=== PATIENT | female | born 1970 | race Caucasian/White ===

== ENCOUNTER 2016-04-05 21:20 | Emergency (ER) | payer BC ==
[2016-04-05 21:36] VITALS: RESP 16
[2016-04-05 21:58] LABS: Appearance,Urine Clear (Clear); Bilirubin,Urine Negative (Negative); Glucose,Urine (UA) Negative (Negative); Ketones,Urine Negative (Negative); Leukocyte Esterase,Urine Negative (Negative); Nitrite,Urine Negative (Negative); Protein,Urine Negative (Negative); Specific Gravity,Urine 1.009 (1.001-1.035); UA Billing (MACRO vs. MICRO) CHEM; Urobilinogen,Urine <2.0 mg/dL (<2.0)
[2016-04-05] MEDS ORDERED: KETOROLAC 60 MG/2 ML VIAL IM STA (22:46)
[2016-04-05 23:03] VITALS: PULSE 72; TEMP 98.3
[2016-04-05 23:04] VITALS: BP 114/69
--- NOTE | 2016-04-05 23:21 | ED ---
Female Urogenital HPI - General Chief complaint: Vaginal Bleeding Stated complaint: Poss Miscarriage Time Seen by Provider: 04/05/16 21:38 Source: patient, RN notes reviewed Mode of arrival: ambulatory Limitations: no limitations - History of Present Illness Initial comments: Patient is a 46-year-old female presents to the emergency room for evaluation of vaginal bleeding. Patient states her last menstrual period was about a year ago. Patient states she began vaginal bleeding yesterday. Patient states that she's been passing large clots. Patient states she is worried that she's having a miscarriage. Patient states that he mild abdominal cramping. Patient states she also has headache. Patient denies dizziness, shortness of breath, chest pain, nausea, vomiting. Patient states she took a home test earlier today and it was negative. Patient states the clotting worried her so she thought she should be evaluated. Patient denies going through any pads or tampons. Patient is states she noticed the clots every time she wipes herself after using the bathroom. Last Menstrual Period: 03/13/15 - Related Data Home Medications Medication Instructions Recorded Confirmed Ibuprofen [Motrin] 400 mg PO ONCE PRN 07/05/15 04/05/16 Allergies Allergy/AdvReac Type Severity Reaction Status Date / Time No Known Allergies Allergy Verified 04/05/16 21:35 Review of Systems ROS Statement: Those systems with pertinent positive or pertinent negative responses have been documented in the HPI. ROS Other: All systems not noted in ROS Statement are negative. Past Medical History Past Medical History: No Reported History Additional Past Medical History / Comment(s): hemorrhoids and hernia History of Any Multi-Drug Resistant Organisms: None Reported Past Surgical History: Breast Surgery Additional Past Surgical History / Comment(s): bilateral breast implants, laser eye surgery with implants. hemorrhoidectomy Past Anesthesia/Blood Transfusion Reactions: No Reported Reaction Past Psychological History: No Psychological Hx Reported Smoking Status: Never smoker Past Alcohol Use History: Occasional Past Drug Use History: None Reported - Past Family History Mother Family Medical History: No Reported History General Exam - General Exam Comments Initial Comments: Sitting in exam room in no acute distress. Limitations: no limitations General appearance: alert, in no apparent distress Head exam: Present: atraumatic, normocephalic, normal inspection Eye exam: Present: normal appearance ENT exam: Present: normal exam Neck exam: Present: normal inspection Respiratory exam: Present: normal lung sounds bilaterally. Absent: respiratory distress Cardiovascular Exam: Present: regular rate, normal rhythm, normal heart sounds GI/Abdominal exam: Present: soft, normal bowel sounds. Absent: distended, tenderness, guarding, rebound, rigid External exam: Present: normal external exam Speculum exam: Present: vaginal bleeding By manual exam: Present: normal by manual exam Extremities exam: Present: normal inspection Back exam: Present: normal inspection Neurological exam: Present: alert, oriented X3, CN II-XII intact, normal gait Psychiatric exam: Present: normal affect, normal mood Skin exam: Present: warm, dry, intact, normal color. Absent: rash Course Vital Signs 04/05/16 04/05/16 21:28 23:02 Temperature 97.5 F L 98.3 F Pulse Rate 91 72 Respiratory 16 16 Rate Blood Pressure 149/72 114/69 O2 Sat by Pulse 97 97 Oximetry Medical Decision Making - Medical Decision Making Patient is a 46-year-old female presents emergency room for violation of vaginal bleeding. No significant bleeding or clotting noticed on pelvic exam. Urine test negative. Advised patient to follow-up with [facility]. Patient states she understands everything that was discussed with her. Return parameters discussed. Case discussed Dr. Issa. - Lab Data Lab Results 04/05/16 04/05/16 Range/Units 21:50 21:50 Urine Color Light Yellow Urine Appearance Clear (Clear) Urine pH 6.0 (5.0-8.0) Ur Specific [place] 1.009 (1.001-1.035) Urine Protein Negative (Negative) Urine Glucose (UA) Negative (Negative) Urine Ketones Negative (Negative) Urine Blood Negative (Negative) Urine Nitrate Negative (Negative) Urine Bilirubin Negative (Negative) Urine Urobilinogen <2.0 (<2.0) mg/dL Ur Leukocyte Esterase Negative (Negative) Urine HCG, Qual Not Detected (Not Detectd) Disposition Clinical Impression: Menorrhagia Disposition: HOME SELF-CARE Instructions: Menorrhagia (ED) Additional Instructions: Please follow-up with [facility]. Take Tylenol or Motrin as needed for discomfort. If any new symptom arises or symptoms worsen, return to ER as soon as possible. Referrals: Zelalem Norris MD [Primary Care Provider] - 1-2 days Time of Disposition: 23:20
== END 2016-04-05 23:25 | disposition home or self-care (01) ==
LOC: EC 21:20
DX: N92.0 Excessive and frequent menstruation with regular cycle (principal); R51 Headache
CPT/HCPCS: 99284; 96372; 81003; 81025; J1885

== ENCOUNTER → 2016-08-14 | Outpatient (CLI) | payer BC ==
[2016-08-14 10:10] LABS: Basophils % (A) 1 %; CH 32.4; CHCM 34.4; Eosinophils # (A) 0.1 k/uL (0-0.7); Eosinophils % (A) 2 %; HCT 38.9 % (34.0-46.0); HDW 2.46; HGB 14.1 gm/dL (11.4-16.0); Luc % (Auto) 2; Lymphocytes # (A) 1.8 k/uL (1.0-4.8); Lymphocytes % (A) 34 %; MCH 34.2 pg (25.0-35.0); MCHC 36.2 g/dL (31.0-37.0); MCV 94.7 fL (80.0-100.0); Mean Platelet Volume 6.9; Monocytes # (A) 0.3 k/uL (0-1.0); Monocytes % (A) 5 %; Neutrophils # (A) 3.1 k/uL (1.3-7.7); Neutrophils % (A) 57 %; RBC 4.11 m/uL (3.80-5.40); WBC 5.4 k/uL (3.8-10.6)
[2016-08-14 10:26] LABS: ALT 69 U/L (9-52); AST 35 U/L (14-36); Alkaline Phosphatase 81 U/L (38-126); Anion Gap 9 mmol/L; Blood Urea Nitrogen 20 mg/dL (7-17); Calcium 9.3 mg/dL (8.4-10.2); Carbon Dioxide 27 mmol/L (22-30); Chloride 106 mmol/L (98-107); Cholesterol 238 mg/dL (<200); Glucose 96 mg/dL (74-99); HDL Cholesterol 70 mg/dL (40-60); Non-African American GFR(MDRD) >60 (>60 ml/min/1.73 sqM); Potassium 4.1 mmol/L (3.5-5.1); Sodium 142 mmol/L (137-145); Total Bilirubin 0.6 mg/dL (0.2-1.3); Triglycerides 202 mg/dL (<150)
== END | disposition home or self-care (01) ==
LOC: LABWHC1 09:34
PROVIDERS: ATTEND Family Medicine
DX: Z00.01 Encounter for general adult medical examination with abnormal findings (principal)
CPT/HCPCS: 36415; 80053; 80061; 84443; 85025

== ENCOUNTER → 2016-10-24 | Outpatient (CLI) | payer BC ==
--- NOTE | 2016-10-24 18:41 | US ---
EXAMINATION TYPE: US transvaginal DATE OF EXAM: 10/24/2016 COMPARISON: NONE CLINICAL HISTORY: R87.619 Atypical glandular cells. Abnormal periods TECHNIQUE: Transvaginal (TV) Date of LMP: 04/01/2016 EXAM MEASUREMENTS: Uterus: 6.6 x 2.8 x 3.5 cm Endometrial Stripe: 0.42 cm Right Ovary: 2.0 x 1.5 1.3 cm 1. Uterus: Anteverted wnl 2. Endometrium: wnl 3. Right Ovary: wnl 4. Left Ovary: Obscured by overlying bowel gas 5. Bilateral Adnexa: wnl 6. Posterior cul-de-sac: wnl IMPRESSION: Left ovary is not seen. No adnexal mass or free fluid. Normal uterus and endometrium.
== END ==
LOC: RADUSMAIN 17:55
PROVIDERS: ATTEND Obstetrics & Gynecology
DX: R87.619 Unspecified abnormal cytological findings in specimens from cervix uteri (principal)
CPT/HCPCS: 76830

== ENCOUNTER 2016-11-21 09:25 | Day surgery (SDC) | payer BC ==
--- NOTE | 2016-11-20 20:20 | P.HPOB ---
History of Present Illness H&P Date: 11/20/16 Chief Complaint: Endometrial hyperplasia This is a 46-year-old female 0 who presents for dilation and curettage with hysteroscopy due to endometrial hyperplasia noted on endometrial biopsy. She had a Pap smear initially on 10/16/2016 that showed atypical glandular cells , favor neoplastic and atypical endometrial cells. HPV was unable to be performed due to scant specimen. She underwent a colposcopy and endometrial biopsy on 10/29/2016. Endocervical curetting showed no endocervical tissue present for evaluation. Cervical biopsy at 1 o'clock position showed koilocytotic like atypia could not exclude HPV effect. Endometrial biopsy showed rare minute fragments of endometrial tissue showing features of endometrial hyperplasia, and pathologist highly recommended endometrial curettings for definitive diagnosis and to rule out endometrial carcinoma. The patient currently is having irregular menses anywhere from 1-5 months apart. Menses usually last 5 days when she does have them. Pelvic ultrasound showed uterus measuring 6.6 x 2.8 x 3.5 cm with endometrial stripe thickness of 0.42 cm. Right ovary appeared normal size and left ovary was not visualized. Obstetrical history: . Gynecologic history: No history of sexual transmitted diseases. She is currently using condoms for control. She has had the same boyfriend since 2012. Social history: She is engaged. She currently works as a waiter/waitress second class. Review of Systems Constitutional: Reports night sweats, Reports weight gain Ears, nose, mouth and throat: Denies headache, Denies sore throat Cardiovascular: Denies chest pain, Denies shortness of breath Respiratory: Denies cough Gastrointestinal: Denies abdominal pain, Denies diarrhea, Denies nausea, Denies vomiting Genitourinary: Reports hot flashes, Denies dysuria, Denies hematuria Menstruation: Reports menses variable Musculoskeletal: right: knee pain Neurological: Denies numbness, Denies weakness Psychiatric: Denies anxiety, Denies depression Past Medical History Past Medical History: Asthma, Osteoarthritis (OA) Additional Past Medical History / Comment(s): having knee replacement in December History of Any Multi-Drug Resistant Organisms: None Reported Past Surgical History: Breast Surgery, Hernia Repair (Umbilical) Additional Past Surgical History / Comment(s): bilateral breast implants, laser eye surgery with implants. hemorrhoidectomy, hernia repair w/mesh Past Anesthesia/Blood Transfusion Reactions: No Reported Reaction Past Psychological History: No Psychological Hx Reported Smoking Status: Never smoker Past Alcohol Use History: Occasional Past Drug Use History: None Reported - Past Family History Mother Family Medical History: No Reported History Medications and Allergies Home Medications Medication Instructions Recorded Confirmed Type Ibuprofen [Motrin] 200 - 400 mg PO Q6H PRN 07/05/15 11/18/16 History Acetaminophen [Tylenol Arthritis] 650 mg PO Q6H PRN 11/18/16 11/18/16 History Citalopram Hydrobromide [CeleXA] 10 mg PO DAILY 11/18/16 11/18/16 History Allergies Allergy/AdvReac Type Severity Reaction Status Date / Time No Known Allergies Allergy Verified 11/18/16 14:13 Exam Osteopathic Statement: *. No significant issues noted on an osteopathic structural exam other than those noted in the History and Physical/Consult. HEENT: Within normal limits Heart: Regular rate and rhythm Lungs: Clear to auscultation bilaterally Abdomen: Soft, nontender Pelvic exam: Uterus is small, anteverted, with no adnexal masses or tenderness noted. Extremities: Negative Homans Assessment and Plan (1) Endometrial hyperplasia Status: Acute Plan: Proceed with dilation and curettage with hysteroscopy. I have discussed the risks, benefits, and alternative therapies for the above- mentioned procedure and for both sedation/anesthesia as well as necessary blood products administration, if indicated, as they pertain to this patient. The patient has indicated her understanding and acceptance of the risks and procedures discussed.
[~2016-11-21 09:25] MED LIST: DEXAMETHASONE SOD PHOSPHATE 10 MG/ML 1 ML VIAL IV ONE; ONDANSETRON 4 MG/2 ML VIAL IVP ONE; Pre Op ABX Message 1 EACH MISC MISCELLANE ONE
[2016-11-21] MEDS: LACTATED RINGERS 1,000 ML IV SCH ×2 (10:13→10:44)
[2016-11-21] MEDS ORDERED: LIDOCAINE 1% 20 ML VIAL (10MG/ML) FOR IV START INTRADERMA ONE (10:13)
[2016-11-21] MEDS ORDERED: LIDOCAINE 1% INJ 10MG/ML (20 ML MDV) ONE (10:47)
[2016-11-21] MEDS ORDERED: KETOROLAC 30 MG/ML 1 ML VIAL ONE (10:47)
[2016-11-21] MEDS ORDERED: MIDAZOLAM 2 MG/2 ML VIAL ONE (10:47)
[2016-11-21] MEDS ORDERED: PROPOFOL 10 MG/ML 20 ML VIAL IV ONE (10:47)
[2016-11-21] MEDS ORDERED: fentaNYL (PF) 50 MCG/ML 2 ML AMP ONE (10:47)
--- NOTE | 2016-11-21 11:20 | P.OP ---
Date of Procedure: 11/21/16 Preoperative Diagnosis: Hysteroscopy with dilation and curettage Postoperative Diagnosis: Same Procedure(s) Performed: Dilation and curettage with hysteroscopy Anesthesia: other (mask general) Surgeon: Sharyn Stauffer Estimated Blood Loss (ml): 10 Pathology: other (1. Endocervical curettings; 2. Endometrial curettings) Condition: stable Disposition: same day Indications for Procedure: This is a 46-year-old female 0 who presents for dilation and curettage with hysteroscopy due to endometrial hyperplasia noted on endometrial biopsy. She had a Pap smear initially on 10/16/2016 that showed atypical glandular cells , favor neoplastic and atypical endometrial cells. HPV was unable to be performed due to scant specimen. She underwent a colposcopy and endometrial biopsy on 10/29/2016. Endocervical curetting showed no endocervical tissue present for evaluation. Cervical biopsy at 1 o'clock position showed koilocytotic like atypia could not exclude HPV effect. Endometrial biopsy showed rare minute fragments of endometrial tissue showing features of endometrial hyperplasia, and pathologist highly recommended endometrial curettings for definitive diagnosis and to rule out endometrial carcinoma. The patient currently is having irregular menses anywhere from 1-5 months apart. Menses usually last 5 days when she does have them. Pelvic ultrasound showed uterus measuring 6.6 x 2.8 x 3.5 cm with endometrial stripe thickness of 0.42 cm. Right ovary appeared normal size and left ovary was not visualized. Operative Findings: Uterus is anteverted, sounded to 6 cm. There was what appeared to be a very small endocervical polyp noted. A fairly atrophic endometrial pattern is visualized with minimal buildup of tissue. Both tubal ostia are visualized. Description of Procedure: The patient was taken to the operating room where she is placed in the dorsal lithotomy position. She is prepped and draped in the normal sterile fashion. Bladder is drained with a catheter and then removed. Examination is performed under anesthesia. Uterus is found to be anteverted with no adnexal masses palpated. Next a weighted speculum was placed in the patient's vagina and a right angle retractor was used to visualize the cervix the anterior lip of the cervix is grasped with a single-tooth tenaculum. There is noted to be what appears to be a very small endocervical polyp noted. This is removed with a hemostat and then the endocervix is curetted with a Kevorkian curet and the tissue was sent to pathology labeled endocervical curettings. Next the uterus is sounded to 6 cm. The cervix is gently dilated with Turner dilators until a hysteroscope could be passed. Hysteroscopy is performed using normal saline. The above-noted findings are made and pictures are taken. Next the camera was withdrawn and the cervix was dilated slightly further. A polyp forcep was introduced and minimal tissue was obtained. Next a medium-size sharp curet was introduced and sharp curettage was performed until a gritty texture was noted with minimal further tissue obtained. Next the single-tooth tenaculum was removed and pressure was applied with a ring forcep. A ring forcep was removed no active bleeding was noted. All sponge and needle counts are correct. All instruments are removed from the vagina. The patient is then taken to recovery room in stable condition.
[2016-11-21 11:27] VITALS: TEMP 97.8
[2016-11-21 11:32] VITALS: RESP 16
[2016-11-21] MEDS: HYDROmorphone 0.5 MG/0.5 ML SYRINGE IVP PRN ×2 (11:45→11:59)
[2016-11-21] MEDS ORDERED: LACTATED RINGERS 1,000 ML IV ONE (12:39)
[2016-11-21 13:25] VITALS: BP 118/70; PULSE 78
== END 2016-11-21 13:57 | disposition home or self-care (01) ==
LOC: OR 09:25
PROVIDERS: ATTEND Obstetrics & Gynecology
DX: N85.02 Endometrial intraepithelial neoplasia [EIN] (principal); N84.1 Polyp of cervix uteri; K21.9 Gastro-esophageal reflux disease without esophagitis; J45.909 Unspecified asthma, uncomplicated; M19.90 Unspecified osteoarthritis, unspecified site; Z79.899 Other long term (current) drug therapy
CPT/HCPCS: 58558; 81025; 88305; J2250; J1100; J2405; J2001; J3010; J1885; J2704; J1170

== ENCOUNTER 2017-10-25 13:50 | Emergency (ER) | payer BC ==
[2017-10-25 14:05] VITALS: PULSE 80; RESP 18
--- NOTE | 2017-10-25 14:15 | ED ---
Upper Extremity HPI - General Chief Complaint: Extremity Injury, Upper Stated Complaint: Fall Time Seen by Provider: 10/25/17 14:05 Source: patient Mode of arrival: ambulatory Limitations: no limitations - History of Present Illness Initial Comments: This a pleasant 47-year-old female presents emergency department after tripping over her cat and falling at home. Patient denies any other injuries. Patient denies any distal paresthesias. Patient denies head or neck injury. No preceding symptomology. No chest pain or shortness of breath. No abdominal pain. No vision or hearing changes. Patient states pain is sharp in nature located mostly in the right elbow and is exacerbated by movement. Patient also complaining of some pain in the left hand overlying the left fifth metacarpal phalangeal joint area. Pain is exacerbated by movement and alleviated by rest. MD Complaint: Injury to:: right, elbow Onset/Timin -: hour(s) Other Extremity Injury: Fingers: Left, Hand: Left (Left hand overlying the area of the fifth metacarpophalangeal joint and proximal left fifth finger phalanx.) Other Injuries: none Handedness: right Place: home Improves With: rest Worsens With: movement of extremity Context: fall - Related Data Home Medications Medication Instructions Recorded Confirmed Cranberry Fruit Concentrate [Azo 250 mg PO DAILY 10/25/17 10/25/17 Cranberry] Previous Rx's Medication Instructions Recorded HYDROcodone/APAP 5-325MG [[place] 1 each PO Q4HR PRN #15 tab 10/25/17 5-325] Allergies Allergy/AdvReac Type Severity Reaction Status Date / Time No Known Allergies Allergy Verified 10/25/17 14:12 Review of Systems ROS Statement: Those systems with pertinent positive or pertinent negative responses have been documented in the HPI. ROS Other: All systems not noted in ROS Statement are negative. Past Medical History Past Medical History: Asthma, Osteoarthritis (OA) Additional Past Medical History / Comment(s): having knee replacement in December History of Any Multi-Drug Resistant Organisms: None Reported Past Surgical History: Breast Surgery, Hernia Repair, Joint Replacement Additional Past Surgical History / Comment(s): bilateral breast implants, laser eye surgery with implants. hemorrhoidectomy, hernia repair w/mesh, right knee replacement Past Anesthesia/Blood Transfusion Reactions: No Reported Reaction Past Psychological History: No Psychological Hx Reported Smoking Status: Never smoker Past Alcohol Use History: Occasional Past Drug Use History: None Reported - Past Family History Mother Family Medical History: No Reported History General Exam - General Exam Comments Initial Comments: This a well-developed, well-nourished 47-year-old female in no distress Limitations: no limitations General appearance: alert, in no apparent distress Head exam: Present: atraumatic, normocephalic, normal inspection Eye exam: Present: normal appearance, EOMI. Absent: scleral icterus, conjunctival injection ENT exam: Present: normal exam, normal oropharynx Neck exam: Present: normal inspection, full ROM. Absent: tenderness Respiratory exam: Present: normal lung sounds bilaterally. Absent: respiratory distress, wheezes, rales, rhonchi, stridor, chest wall tenderness Cardiovascular Exam: Present: regular rate, normal rhythm, normal heart sounds. Absent: systolic murmur, diastolic murmur, rubs, gallop, clicks GI/Abdominal exam: Present: soft. Absent: distended, tenderness Extremities exam: Present: normal inspection, full ROM, other (Patient essentially has full range of motion with regards to the right elbow and left hand. All other joints are atraumatic.) Back exam: Present: normal inspection, full ROM Neurological exam: Present: alert, oriented X3, CN II-XII intact. Absent: motor sensory deficit Psychiatric exam: Present: normal affect, normal mood Skin exam: Present: warm, dry Course Vital Signs 10/25/17 14:01 Temperature 98.7 F Pulse Rate 80 Respiratory 18 Rate Blood Pressure 137/78 O2 Sat by Pulse 99 Oximetry Procedures - Orthopedic Splinting/Casting Injury #1 Side: left Upper Extremity Injury Location: hand Upper Extremity Immobilizer: ulnar gutter (Short arm ulnar gutter splint was applied. Distal neurovascular status intact both pre-and post-application. Applied by me.) Additional Comments: Sling was applied on the right. Distal nerve rest her status was intact both pre-and post-application. Medical Decision Making - Medical Decision Making Patient was counseled on x-ray findings. Patient was counseled to return and follow-up parameters. Case discussed with ER attending physician who supervised case. Plain film x-rays reveal a minimally angulated distal fifth metacarpal fracture on the left as well as a radial head fracture on the right. There is evidence of an anterior and posterior fat pad on the right elbow. No evidence of dislocation. Patient placed in a short arm OCL on the left. Patient placed in sling on the right. Case is discussed with Dr. Knight who is the ER supervising physician. Return and follow-up parameters discussed. - Radiology Data Radiology results: image reviewed Disposition Clinical Impression: Fracture of radial head, right, closed, Nondisplaced fracture of neck of fifth metacarpal bone, left hand, initial encounter for closed fracture, Fracture of elbow, Fracture of hand Narrative: Case discussed with ER attending physician Disposition: HOME SELF-CARE Condition: Good Additional Instructions: Call for an appointment with the orthopedic physician as directed. Wear the splint as directed at all times. Wear the sling as directed. Return to the ER if any problems or difficulties arise. Apply ice 20 minutes on and off to the affected areas 4 times daily until follow-up with orthopedics. Prescriptions: HYDROcodone/APAP 5-325MG [[place] 5-325] 1 each PO Q4HR PRN #15 tab PRN Reason: Pain Is patient prescribed a controlled substance at d/c from ED?: Yes When asked, does pt state using other controlled substances?: No If prescribed controlled substance>3 days was MAPS reviewed?: Prescribed <3 Days If opioid is for acute pain is fill amount 7 days or less?: Yes If Rx opioid, was Start Talking consent form obtained?: Yes Referrals: Peter Vargas MD [Medical Doctor] - 10/27/17 Time of Disposition: 15:12
--- NOTE | 2017-10-25 14:27 | XR ---
EXAMINATION TYPE: XR hand complete LT DATE OF EXAM: 10/25/2017 COMPARISON: NONE HISTORY: Fall. Pain. TECHNIQUE: 3 views FINDINGS: There is nondisplaced fracture of the neck of the head of the fifth metacarpal. There is no dislocation. Carpal bones are intact. IMPRESSION: Acute fracture of the distal fifth metacarpal.
[2017-10-25] MEDS ORDERED: MORPHINE SULFATE 4 MG/ML SYRINGE IM STA (14:54)
[2017-10-25] MEDS ORDERED: KETOROLAC 60 MG/2 ML VIAL IM STA (14:55)
[2017-10-25 15:32] VITALS: BP 127/75; TEMP 98.5
== END 2017-10-25 15:38 | disposition home or self-care (01) ==
LOC: EC 13:50
DX: S52.121A Displaced fracture of head of right radius, initial encounter for closed fracture (principal); S62.367A Nondisplaced fracture of neck of fifth metacarpal bone, left hand, initial encounter for closed fracture; Z96.651 Presence of right artificial knee joint; W01.0XXA Fall on same level from slipping, tripping and stumbling without subsequent striking against object, initial encounter; Y92.009 Unspecified place in unspecified non-institutional (private) residence as the place of occurrence of the external cause
CPT/HCPCS: 73080; 73130; 29125; 99283; 96372 ×2; J2270; J1885

== ENCOUNTER → 2018-04-09 | Outpatient (CLI) | payer BC ==
--- NOTE | 2018-04-10 21:15 | BD ---
EXAMINATION TYPE: Axial Bone Density DATE OF EXAM: 04/09/2018 COMPARISON: NONE CLINICAL HISTORY: 48 YR OLD FEMALE....ICD-10 CODE: Z13.820 OSTEOPOROSIS SCREENING Height: 63 Weight: 192 FRAX RISK QUESTIONS: NOTHING TO NOTE HERE RISK FACTORS HISTORY OF: HX OF LT BROKEN AND LT ELBOW, AND TOE AT AGE 48 Active: YES Postmenopausal woman: TOTAL HYST. AT 46 YRS OLD MEDICATIONS: Additional Medications: REFLUX MEDS ONLY Additional History: CA NUMBERS IN WORK UP FOR HYSTERECTOMY EXAM MEASUREMENTS: Bone mineral densitometry was performed using the muzu tv System. Bone mineral density as measured about the Lumbar spine is: ----- L1-L4(G/cm2): 1.242 T Score Values are as follows: ----- L1: 0.2 ----- L2: 0.2 ----- L3: 1.0 ----- L4: 0.4 ----- L1-L4: 0.5 Bone mineral density FIRST BONE DENSITY SCAN......BASELINE STUDY Bone mineral density about the R hip (g/cm2): 0.941 Bone mineral density about the L hip (g/cm2): 0.930 T Score values are as follows: -----R Neck: -1.2 -----L Neck: -0.7 -----R Total: -0.5 -----L Total: -0.6 Bone mineral density IS A BASELINE STUDY FRAX%s: THERE IS A 7.2% CHANCE FOR A MAJOR OSTEOPOROTIC FX AND A 0.5% FOR HIP FX...PROBABILITY OF FX IN 10 YRS TIME IMPRESSION: Osteopenia (T Score between -2.5 and -1). There is slightly increased risk of fracture and the patient may be considered for treatment. Re-Screen 2-5 years. NOTE: T-SCORE=SD OF THE YOUNG ADULT MEAN.
--- NOTE | 2018-04-13 08:13 | MM ---
Reason for exam: screening (asymptomatic). Last mammogram was performed 1 year and 7 months ago. History: Patient is postmenopausal and is nulliparous. Retro-pectoral silicone gel implants in both breasts, 2008. Physical Findings: A clinical breast exam by your physician is recommended on an annual basis and results should be correlated with mammographic findings. MG Screening Mammo Implant/CAD Bilateral CC, MLO, and ID view(s) were taken. Prior study comparison: August 28, 2016, mammogram, performed at [facility]. The breast tissue is heterogeneously dense. This may lower the sensitivity of mammography. Bilateral breast prothesis. No significant changes when compared with prior studies. ASSESSMENT: Benign, BI-RAD 2 RECOMMENDATION: Routine screening mammogram of both breasts in 1 year.
== END | disposition home or self-care (01) ==
LOC: RADMAMWWP 15:35
PROVIDERS: ATTEND Obstetrics & Gynecology
DX: Z12.31 Encounter for screening mammogram for malignant neoplasm of breast (principal); M85.80 Other specified disorders of bone density and structure, unspecified site
CPT/HCPCS: 77067; 77080

== ENCOUNTER 2020-03-02 06:03 | Inpatient (IN) | payer BC, OTHER ==
[2020-03-02] MEDS ORDERED: SODIUM CHLORIDE 0.9% 500 ML 500 ML IV STA (06:19)
[2020-03-02] MEDS ORDERED: PANTOPRAZOLE 40 MG/10 ML VIAL IVP STA (06:36)
--- NOTE | 2020-03-02 06:51 | ED ---
Abdominal Pain HPI - General Source: patient Mode of arrival: ambulatory Limitations: no limitations <Ethel Servin - Last Filed: 03/02/20 08:20> <Traci Mcpherson - Last Filed: 03/02/20 08:29> - General Chief Complaint: Abdominal Pain Stated Complaint: Abd Pain Time Seen by Provider: 03/02/20 06:17 - History of Present Illness Initial Comments: 50-year-old female presenting today for chief complaint of upper abdominal pain. Patient states that a week ago she had an upset lasted approximately 11 hours of upper abdominal pain she states it was severe. Patient states it went away and then returned yesterday she felt a dull aching in the epigastric and right upper quadrant of her abdomen. Patient states there is no radiation of the pain she states she's had some slight nausea and episodes of vomiting. Patient states the returned at 3 AM this morning. Patient states is gradually been getting better. Patient states she did take Pepto-Bismol yesterday and had a dark stool this morning. She denies dark stools prior to this she denies any bloody stools or known history of peptic ulcer disease she denies NSAID abuse or alcohol abuse. Patient denies any liver disease. Patient denies any chest pressure pain shortness of breath jaw arm pain or diaphoresis. Patient denies fevers cough or upper respiratory symptoms. Denies pain deep inspiration remaining review of systems negative upon arrival patient appears well nontoxic distress this time. (Ethel Servin) - Related Data Home Medications Medication Instructions Recorded Confirmed Omeprazole 40 mg PO DAILY 03/02/20 03/02/20 Allergies Allergy/AdvReac Type Severity Reaction Status Date / Time No Known Allergies Allergy Verified 03/02/20 07:35 Review of Systems ROS Other: All systems not noted in ROS Statement are negative. <Ethel Servin - Last Filed: 03/02/20 08:20> ROS Other: All systems not noted in ROS Statement are negative. <Traci Mcpherson - Last Filed: 03/02/20 08:29> ROS Statement: Those systems with pertinent positive or pertinent negative responses have been documented in the HPI. Past Medical History Past Medical History: Asthma, Osteoarthritis (OA) Additional Past Medical History / Comment(s): having knee replacement in December History of Any Multi-Drug Resistant Organisms: None Reported Past Surgical History: Breast Surgery, Hernia Repair, Joint Replacement Additional Past Surgical History / Comment(s): bilateral breast implants, laser eye surgery with implants. hemorrhoidectomy, hernia repair w/mesh, right knee replacement Past Anesthesia/Blood Transfusion Reactions: No Reported Reaction Past Psychological History: No Psychological Hx Reported Smoking Status: Never smoker Past Alcohol Use History: Occasional Past Drug Use History: None Reported - Past Family History Mother Family Medical History: No Reported History <ClmeentecharlotteEthel Flor - Last Filed: 03/02/20 08:20> General Exam Limitations: no limitations <Ethel Servin - Last Filed: 03/02/20 08:20> - General Exam Comments Initial Comments: General: The patient is awake and alert, in no distress Eye: +3 mm pupils are equal, round and reactive to light, extra-ocular movements are intact. No nystagmus. There is normal conjunctiva bilaterally. No signs of icterus. Ears, nose, mouth and throat: There are moist mucous membranes and no oral lesions. Neck: The neck is supple, there is no tenderness or JVD. Cardiovascular: There is a regular rate and rhythm. No murmur, rub or gallop is appreciated. Respiratory: Lungs are clear to auscultation, respirations are non-labored, breath sounds are equal. No wheezes, stridor, rales, or rhonchi. Gastrointestinal: Soft, non-distended, epigastric and right upper quadrant tenderness to palpation of the abdomen, abdomen without masses or organomegaly noted. There is no rebound or guarding present. Rectal: NO bright red blood, no dark stool, light brown stool per rectum Musculoskeletal: Normal ROM, no tenderness. Strength 5/5. Sensation intact. Radial pulses equal bilaterally 2+. Neurological: A&O x 3. CN II-XII intact grossly, There are no obvious motor or sensory deficits. Coordination appears grossly intact. Speech is normal. Skin: Skin is warm and dry and no rashes or lesions are noted. Psychiatric: Cooperative, appropriate mood & affect, normal judgment. (GarethMounikaEthel L) Course Vital Signs 03/02/20 03/02/20 06:05 07:55 Temperature 98.7 F 98.1 F Pulse Rate 95 79 Respiratory 18 16 Rate Blood Pressure 148/93 114/68 O2 Sat by Pulse 95 98 Oximetry Medical Decision Making - Lab Data Result diagrams: 03/02/20 06:23 03/02/20 06:23 <Ethel Servin - Last Filed: 03/02/20 08:20> - Lab Data Result diagrams: 03/02/20 06:23 03/02/20 06:23 <Traci Mcpherson - Last Filed: 03/02/20 08:29> - Medical Decision Making Ventricular rate 77 bpm, PA interval 130 ms, QRS administration 98 ms, QT/QTC 398/450 ms. This is normal sinus there is no ST elevation or depression appreciated. 50-year-old female presenting for upper abdominal pain. Denies chest pain and EKG no acute ischemic findings. Patient's pain reproducible on exam labs reveal AST/ALT elevation. Patient US thickened gallbladder. Concern possible acute cholecystitis. pt has presented tenderness with the vomiting, increased neutrophils is significant for Elevation of AST and ALT i feel this is developing acute cholecysttis and patient started on zosyn. patient agreeable to admission. Dr. Barlow consulted. Recommends abx, clear liquid and GI consult. He states they dont feel at this point patient is going to have cholecystectomy (Ethel Servin) Initial assessment and exam performed by the PA. I agree with the diagnosis, differential and treatment options. Spoke with Dr. Barlow who agreed to admit the patient. (Traci Mcpherson) - Lab Data Lab Results 03/02/20 03/02/20 03/02/20 Range/Units 06:23 06:23 06:23 WBC 9.9 (3.8-10.6) k/uL RBC 4.59 (3.80-5.40) m/uL Hgb 14.6 (11.4-16.0) gm/dL Hct 42.8 (34.0-46.0) % MCV 93.3 (80.0-100.0) fL MCH 31.8 (25.0-35.0) pg MCHC 34.1 (31.0-37.0) g/dL RDW 12.2 (11.5-15.5) % Plt Count 272 (150-450) k/uL MPV 6.9 Neutrophils % 79 % Lymphocytes % 15 % Monocytes % 4 % Eosinophils % 1 % Basophils % 0 % Neutrophils # 7.8 H (1.3-7.7) k/uL Lymphocytes # 1.5 (1.0-4.8) k/uL Monocytes # 0.4 (0-1.0) k/uL Eosinophils # 0.1 (0-0.7) k/uL Basophils # 0.0 (0-0.2) k/uL Sodium 140 (137-145) mmol/L Potassium 4.0 (3.5-5.1) mmol/L Chloride 105 (98-107) mmol/L Carbon Dioxide 29 (22-30) mmol/L Anion Gap 6 mmol/L BUN 17 (7-17) mg/dL Creatinine 0.68 (0.52-1.04) mg/dL Est GFR (CKD-EPI)AfAm >90 (>60 ml/min/1.73 sqM) Est GFR (CKD-EPI)NonAf >90 (>60 ml/min/1.73 sqM) Glucose 110 H (74-99) mg/dL Calcium 9.5 (8.4-10.2) mg/dL Total Bilirubin 0.8 (0.2-1.3) mg/dL AST 329 H (14-36) U/L ALT 234 H (4-34) U/L Alkaline Phosphatase 119 (38-126) U/L Troponin I (0.000-0.034) ng/mL Total Protein 7.5 (6.3-8.2) g/dL Albumin 4.2 (3.5-5.0) g/dL Amylase 51 (30-110) U/L Lipase 114 (23-300) U/L Urine Color Yellow Urine Appearance Clear (Clear) Urine pH 6.5 (5.0-8.0) Ur Specific [place] 1.030 (1.001-1.035) Urine Protein Trace H (Negative) Urine Glucose (UA) Negative (Negative) Urine Ketones Negative (Negative) Urine Blood Small H (Negative) Urine Nitrite Negative (Negative) Urine Bilirubin Negative (Negative) Urine Urobilinogen 2.0 (<2.0) mg/dL Ur Leukocyte Esterase Negative (Negative) Urine RBC 7 H (0-5) /hpf Urine WBC 1 (0-5) /hpf Ur Squamous Epith Cells 12 H (0-4) /hpf Urine Mucus Occasional H (None) /hpf Stool Occult Blood (Negative) 03/02/20 03/02/20 Range/Units 06:23 06:39 WBC (3.8-10.6) k/uL RBC (3.80-5.40) m/uL Hgb (11.4-16.0) gm/dL Hct (34.0-46.0) % MCV (80.0-100.0) fL MCH (25.0-35.0) pg MCHC (31.0-37.0) g/dL RDW (11.5-15.5) % Plt Count (150-450) k/uL MPV Neutrophils % % Lymphocytes % % Monocytes % % Eosinophils % % Basophils % % Neutrophils # (1.3-7.7) k/uL Lymphocytes # (1.0-4.8) k/uL Monocytes # (0-1.0) k/uL Eosinophils # (0-0.7) k/uL Basophils # (0-0.2) k/uL Sodium (137-145) mmol/L Potassium (3.5-5.1) mmol/L Chloride (98-107) mmol/L Carbon Dioxide (22-30) mmol/L Anion Gap mmol/L BUN (7-17) mg/dL Creatinine (0.52-1.04) mg/dL Est GFR (CKD-EPI)AfAm (>60 ml/min/1.73 sqM) Est GFR (CKD-EPI)NonAf (>60 ml/min/1.73 sqM) Glucose (74-99) mg/dL Calcium (8.4-10.2) mg/dL Total Bilirubin (0.2-1.3) mg/dL AST (14-36) U/L ALT (4-34) U/L Alkaline Phosphatase (38-126) U/L Troponin I <0.012 (0.000-0.034) ng/mL Total Protein (6.3-8.2) g/dL Albumin (3.5-5.0) g/dL Amylase (30-110) U/L Lipase (23-300) U/L Urine Color Urine Appearance (Clear) Urine pH (5.0-8.0) Ur Specific Republic (1.001-1.035) Urine Protein (Negative) Urine Glucose (UA) (Negative) Urine Ketones (Negative) Urine Blood (Negative) Urine Nitrite (Negative) Urine Bilirubin (Negative) Urine Urobilinogen (<2.0) mg/dL Ur Leukocyte Esterase (Negative) Urine RBC (0-5) /hpf Urine WBC (0-5) /hpf Ur Squamous Epith Cells (0-4) /hpf Urine Mucus (None) /hpf Stool Occult Blood Negative (Negative) Disposition Is patient prescribed a controlled substance at d/c from ED?: No Time of Disposition: 07:45 Decision to Admit Reason: Admit from EC Decision Date: 03/02/20 Decision Time: 07:45 <Ethel Servin - Last Filed: 03/02/20 08:20> <Traci Mcpherson - Last Filed: 03/02/20 08:29> Clinical Impression: Cholecystitis, RUQ pain, Liver enzyme elevation Disposition: ADMITTED IP TO THIS HOSP Condition: Stable Referrals: Monster Norris MD [Primary Care Provider] - 1-2 days
[2020-03-02 06:52] LABS: Basophils % (A) 0 %; Eosinophils # (A) 0.1 k/uL (0-0.7); Eosinophils % (A) 1 %; HCT 42.8 % (34.0-46.0); HGB 14.6 gm/dL (11.4-16.0); Lymphocytes # (A) 1.5 k/uL (1.0-4.8); Lymphocytes % (A) 15 %; MCH 31.8 pg (25.0-35.0); MCHC 34.1 g/dL (31.0-37.0); MCV 93.3 fL (80.0-100.0); Mean Platelet Volume 6.9; Monocytes # (A) 0.4 k/uL (0-1.0); Monocytes % (A) 4 %; Neutrophils # (A) 7.8 k/uL (1.3-7.7); Neutrophils % (A) 79 %; Platelet Count 272 k/uL (150-450); RBC 4.59 m/uL (3.80-5.40); RDW 12.2 % (11.5-15.5); WBC 9.9 k/uL (3.8-10.6)
--- NOTE | 2020-03-02 06:56 | XR ---
EXAM: XR Chest, 2 Views CLINICAL HISTORY: ITS.REASON XR Reason: epigastric pain TECHNIQUE: Frontal and lateral views of the chest. COMPARISON: none available FINDINGS: Lungs: Unremarkable. No consolidation. Pleural space: Unremarkable. No pneumothorax. Heart: Unremarkable. No cardiomegaly. Mediastinum: Unremarkable. Bones/joints: Unremarkable. IMPRESSION: No acute pulmonary process.
[2020-03-02 07:23] LABS: Appearance,Urine Clear (Clear); Bilirubin,Urine Negative (Negative); Blood,Urine Small (Negative); Color,Urine Yellow; Glucose,Urine (UA) Negative (Negative); Ketones,Urine Negative (Negative); Leukocyte Esterase,Urine Negative (Negative); Mucus,Urine Occasional /hpf; Nitrite,Urine Negative (Negative); PH, Urine 6.5 (5.0-8.0); Protein,Urine Trace (Negative); RBC,Urine 7 /hpf (0-5); Squamous Epithelial Cell,Urine 12 /hpf (0-4); WBC,Urine 1 /hpf (0-5)
[2020-03-02 07:24] LABS: ALT 234 U/L (4-34); AST 329 U/L (14-36); African American GFR (CKD) >90 (>60 ml/min/1.73 sqM); Albumin 4.2 g/dL (3.5-5.0); Alkaline Phosphatase 119 U/L (38-126); Amylase 51 U/L (30-110); Anion Gap 6 mmol/L; Blood Urea Nitrogen 17 mg/dL (7-17); Calcium 9.5 mg/dL (8.4-10.2); Carbon Dioxide 29 mmol/L (22-30); Chloride 105 mmol/L (98-107); Glucose 110 mg/dL (74-99); Lipase 114 U/L (23-300); Non-African American GFR(CKD) >90 (>60 ml/min/1.73 sqM); Sodium 140 mmol/L (137-145); Total Bilirubin 0.8 mg/dL (0.2-1.3); Total Protein 7.5 g/dL (6.3-8.2)
--- NOTE | 2020-03-02 07:39 | US ---
EXAMINATION TYPE: US abdomen limited DATE OF EXAM: 03/02/2020 COMPARISON: None CLINICAL HISTORY: RUQ pain. RUQ/ Epigastric pain EXAM MEASUREMENTS: Liver Length: 16.9 cm Gallbladder Wall: 0.5 cm CBD: 0.5 cm Right Kidney: 11.8 x 4.5 x 4.9 cm Pancreas: wnl, tail obscured by overlying bowel gas Liver: wnl Gallbladder: Small, mobile gallstones, thickened wall Evidence for sonographic Hu's sign: Yes CBD: wnl Right Kidney: wnl IMPRESSION: 1. Cholelithiasis. Gallbladder wall is thickened. Correlate for acute cholecystitis. 2. Hepatomegaly
[2020-03-02] MEDS ORDERED: PIPERACILLIN-TAZOBACTAM 3.375 GM in SODIUM CHLORIDE 0.9% 100 ML IVPB STA (07:43)
[2020-03-02] MEDS ORDERED: NALOXONE 0.4 MG/ML 1 ML VIAL IV PRN (08:17)
[2020-03-02] MEDS: HYDROmorphone 1 MG/ML 1 ML SYRINGE IVP PRN ×3 (12:35→21:56)
[2020-03-02] MEDS ORDERED: ONDANSETRON 4 MG/2 ML VIAL IVP PRN (13:02)
--- NOTE | 2020-03-02 13:03 | P.GSHP ---
<Jeniffer Baires - Last Filed: 03/02/20 12:53> History of Present Illness H&P Date: 03/02/20 CHIEF COMPLAINT: Right upper quadrant epigastric abdominal pain HISTORY OF PRESENT ILLNESS: This is a 50-year-old female with a known history of acid reflux, umbilical hernia repair with mesh and hemorrhoidectomy. Patient presents to the emergency room with complaints of epigastric and right upper quadrant abdominal pain. She really describes the pain as crampy and sharp. She rates the pain about 10 out of 10. She has been having nausea and vomiting. The symptoms do not appear to be associated with food. She reports that symptoms initially started last Friday and lasted for about 12 hours. Yesterday she did start to have again the epigastric and right upper quadrant pain with nausea. She took Pepto-Bismol with no significant relief. She does report having dark stools after the Pepto-Bismol. Around 3:00 this morning she woke up to sharp epigastric and right upper quadrant pain and decided to come into the emergency room. She was found to have elevated liver enzymes. Abdominal ultrasound shows cholelithiasis. Gallbladder wall is thickened. Correlate for acute cholecystitis. Hepatomegaly noted. Patient has been admitted to the hospital for cholecystitis. She started on IV antibiotics. GI service has been consulted. Patient denies any fever, chills or diarrhea. She does have episodes of sweating when the pain becomes severe. She does report feeling bloated. PAST MEDICAL HISTORY: See list. PAST SURGICAL HISTORY: See list. MEDICATIONS: See list. ALLERGIES: See list. SOCIAL HISTORY: No illicit drug use. REVIEW OF SYSTEMS: CONSTITUTIONAL: Denies fever or chills. HEENT: Denies blurred vision, vision changes, or eye pain. Denies hemoptysis CARDIOVASCULAR: Denies chest pain or pressure. RESPIRATORY: No shortness of breath. GASTROINTESTINAL: See HPI for pertinent findings HEMATOLOGIC: Denies bleeding disorders. GENITOURINARY: Denies any blood in urine or increased urinary frequency. SKIN: Denies pruitis. Denies rash. PHYSICAL EXAM: VITAL SIGNS: Reviewed GENERAL: Well-developed in no acute distress. HEENT: No sclera icterus. Extraocular movements grossly intact. Moist buccal mucosa. Head is atraumatic, normocephalic. No nasal drainage. ABDOMEN: Soft. Nondistended tenderness with palpation of the epigastric and right upper quadrant NEUROLOGIC: Alert and oriented. Cranial nerves II through XII grossly intact. LABORATORY DATA: WBC 9.9 hemoglobin 14.6 creatinine 0.68 total bili 0.8 AST 329 ALT 234 lipase 114 amylase 51 Stool occult blood negative UA trace blood no evidence of infection IMAGING: Abdominal ultrasound shows cholelithiasis. Gallbladder wall is thickened. Correlate for acute cholecystitis. Hepatomegaly noted. ASSESSMENT: 1. Acute cholecystitis with abdominal ultrasound showing cholelithiasis and gallbladder wall thickening 2. Elevated LFTs PLAN: -Continue IV Zosyn -[place] and Dilaudid as needed for pain -Start patient on a clear liquid diet -Repeat LFTs in a.m. -Consult placed for GI service -Further recommendations forthcoming per surgeon -GI prophylaxis Protonix and DVT prophylaxis subcu heparin Physician Professor [employer] note has been reviewed by physician. Signing provider agrees with the documented findings, assessment, and plan of care. Past Medical History Past Medical History: Osteoarthritis (OA) Additional Past Medical History / Comment(s): having knee replacement in December History of Any Multi-Drug Resistant Organisms: None Reported Past Surgical History: Breast Surgery, Hernia Repair, Joint Replacement Additional Past Surgical History / Comment(s): bilateral breast implants, laser eye surgery with implants. hemorrhoidectomy, hernia repair w/mesh, right knee replacement Past Anesthesia/Blood Transfusion Reactions: No Reported Reaction Past Psychological History: No Psychological Hx Reported Smoking Status: Never smoker Past Alcohol Use History: Occasional Past Drug Use History: None Reported - Past Family History Mother Family Medical History: No Reported History Medications and Allergies Home Medications Medication Instructions Recorded Confirmed Type Omeprazole 40 mg PO DAILY 03/02/20 03/02/20 History Allergies Allergy/AdvReac Type Severity Reaction Status Date / Time No Known Allergies Allergy Verified 03/02/20 11:07 Surgical - Exam Vital Signs Temp Pulse Resp BP Pulse Ox 98.7 F 95 18 148/93 95 03/02/20 06:05 03/02/20 06:05 03/02/20 06:05 03/02/20 06:05 03/02/20 06:05 Results - Labs 03/02/20 06:23 03/02/20 06:23 Abnormal Lab Results - Last 24 Hours (Table) 03/02/20 03/02/20 03/02/20 Range/Units 06:23 06:23 06:23 Neutrophils # 7.8 H (1.3-7.7) k/uL Glucose 110 H (74-99) mg/dL AST 329 H (14-36) U/L ALT 234 H (4-34) U/L Urine Protein Trace H (Negative) Urine Blood Small H (Negative) Urine RBC 7 H (0-5) /hpf Ur Squamous Epith Cells 12 H (0-4) /hpf Urine Mucus Occasional H (None) /hpf Diabetes panel 03/02/20 Range/Units 06:23 Sodium 140 (137-145) mmol/L Potassium 4.0 (3.5-5.1) mmol/L Chloride 105 (98-107) mmol/L Carbon Dioxide 29 (22-30) mmol/L BUN 17 (7-17) mg/dL Creatinine 0.68 (0.52-1.04) mg/dL Glucose 110 H (74-99) mg/dL Calcium 9.5 (8.4-10.2) mg/dL AST 329 H (14-36) U/L ALT 234 H (4-34) U/L Alkaline Phosphatase 119 (38-126) U/L Total Protein 7.5 (6.3-8.2) g/dL Albumin 4.2 (3.5-5.0) g/dL Calcium panel 03/02/20 Range/Units 06:23 Calcium 9.5 (8.4-10.2) mg/dL Albumin 4.2 (3.5-5.0) g/dL Pituitary panel 03/02/20 Range/Units 06:23 Sodium 140 (137-145) mmol/L Potassium 4.0 (3.5-5.1) mmol/L Chloride 105 (98-107) mmol/L Carbon Dioxide 29 (22-30) mmol/L BUN 17 (7-17) mg/dL Creatinine 0.68 (0.52-1.04) mg/dL Glucose 110 H (74-99) mg/dL Calcium 9.5 (8.4-10.2) mg/dL Adrenal panel 03/02/20 Range/Units 06:23 Sodium 140 (137-145) mmol/L Potassium 4.0 (3.5-5.1) mmol/L Chloride 105 (98-107) mmol/L Carbon Dioxide 29 (22-30) mmol/L BUN 17 (7-17) mg/dL Creatinine 0.68 (0.52-1.04) mg/dL Glucose 110 H (74-99) mg/dL Calcium 9.5 (8.4-10.2) mg/dL Total Bilirubin 0.8 (0.2-1.3) mg/dL AST 329 H (14-36) U/L ALT 234 H (4-34) U/L Alkaline Phosphatase 119 (38-126) U/L Total Protein 7.5 (6.3-8.2) g/dL Albumin 4.2 (3.5-5.0) g/dL <Eduardo Barlow - Last Filed: 03/02/20 19:15> History of Present Illness As above. Patient admitted with suspected acute cholecystitis. Liver enzymes however noted to be elevated and underlying choledocholithiasis not excluded. We'll repeat labs tomorrow. Continue antibiotics. Tentatively plan cholecystectomy tomorrow if liver enzymes improved. Surgical - Exam Vital Signs Temp Pulse Resp BP Pulse Ox 98.7 F 95 18 148/93 95 03/02/20 06:05 03/02/20 06:05 03/02/20 06:05 03/02/20 06:05 03/02/20 06:05 Results - Labs 03/02/20 06:23 03/02/20 06:23 Abnormal Lab Results - Last 24 Hours (Table) 03/02/20 03/02/20 03/02/20 Range/Units 06:23 06:23 06:23 Neutrophils # 7.8 H (1.3-7.7) k/uL Glucose 110 H (74-99) mg/dL AST 329 H (14-36) U/L ALT 234 H (4-34) U/L Urine Protein Trace H (Negative) Urine Blood Small H (Negative) Urine RBC 7 H (0-5) /hpf Ur Squamous Epith Cells 12 H (0-4) /hpf Urine Mucus Occasional H (None) /hpf Diabetes panel 03/02/20 Range/Units 06:23 Sodium 140 (137-145) mmol/L Potassium 4.0 (3.5-5.1) mmol/L Chloride 105 (98-107) mmol/L Carbon Dioxide 29 (22-30) mmol/L BUN 17 (7-17) mg/dL Creatinine 0.68 (0.52-1.04) mg/dL Glucose 110 H (74-99) mg/dL Calcium 9.5 (8.4-10.2) mg/dL AST 329 H (14-36) U/L ALT 234 H (4-34) U/L Alkaline Phosphatase 119 (38-126) U/L Total Protein 7.5 (6.3-8.2) g/dL Albumin 4.2 (3.5-5.0) g/dL Calcium panel 03/02/20 Range/Units 06:23 Calcium 9.5 (8.4-10.2) mg/dL Albumin 4.2 (3.5-5.0) g/dL Pituitary panel 03/02/20 Range/Units 06:23 Sodium 140 (137-145) mmol/L Potassium 4.0 (3.5-5.1) mmol/L Chloride 105 (98-107) mmol/L Carbon Dioxide 29 (22-30) mmol/L BUN 17 (7-17) mg/dL Creatinine 0.68 (0.52-1.04) mg/dL Glucose 110 H (74-99) mg/dL Calcium 9.5 (8.4-10.2) mg/dL Adrenal panel 03/02/20 Range/Units 06:23 Sodium 140 (137-145) mmol/L Potassium 4.0 (3.5-5.1) mmol/L Chloride 105 (98-107) mmol/L Carbon Dioxide 29 (22-30) mmol/L BUN 17 (7-17) mg/dL Creatinine 0.68 (0.52-1.04) mg/dL Glucose 110 H (74-99) mg/dL Calcium 9.5 (8.4-10.2) mg/dL Total Bilirubin 0.8 (0.2-1.3) mg/dL AST 329 H (14-36) U/L ALT 234 H (4-34) U/L Alkaline Phosphatase 119 (38-126) U/L Total Protein 7.5 (6.3-8.2) g/dL Albumin 4.2 (3.5-5.0) g/dL
--- NOTE | 2020-03-02 15:32 | CONS ---
CONSULTATION DATE OF DICTATION: March 02, 2020 REASON FOR CONSULTATION: Severe epigastric pain and elevated LFTs. HISTORY OF PRESENT ILLNESS: The patient is a 50-year-old pleasant white female admitted to hospital with acute onset of severe epigastric pain that started 4 days ago. She had an episode last that lasted for 3 or 4 hours and subsided. The pain was mostly in the midsternal area in the epigastric area associated with nausea, vomiting. She had another episode 2 days ago that lasted for half an hour and it resolved. This morning she woke up and she had intense pain in the epigastric area, midsternal area associated with nausea, vomiting. The pain continued to progressively get worse. She took some Pepto-Bismol, no help. She came to the emergency room and subsequently had ultrasound of the gallbladder that showed multiple gallstones with no biliary ductal dilation. However, she was noted to have elevated serum transaminases in the range of 200s and hence we are consulted for further evaluation. The patient never had these symptoms in the past. No history of peptic ulcer disease. No recent NSAID use. PAST MEDICAL HISTORY: Unremarkable. PAST SURGICAL HISTORY: Hernia repair, breast surgery, hemorrhoidectomy, and right knee replacement. MEDICATIONS: Medications at home include omeprazole. ALLERGIES: None. SOCIAL HISTORY: No smoking. No alcohol use. FAMILY HISTORY: Unremarkable. REVIEW OF SYSTEMS: CARDIOPULMONARY: No chest pain. No shortness of breath. GENITOURINARY: No dysuria or hematuria. MUSCULOSKELETAL: Unremarkable. SKIN: Unremarkable. ENDOCRINE: Unremarkable. PSYCHIATRIC: Unremarkable. NEUROLOGY: Unremarkable. ENT/VISION: Unremarkable. CONSTITUTIONAL: No recent weight loss. No fever, chills, night sweats. PHYSICAL EXAMINATION: Blood pressure 113/70, pulse rate 84, temperature 97.8. HEENT EXAMINATION: Unremarkable. Conjunctivae pink. Sclerae anicteric. Oral cavity, no lesions. NECK: No JVD or lymph node enlargement. CHEST: Was clear to auscultation. HEART: Regular rate and rhythm. ABDOMEN: There was mild tenderness in the epigastric area. Bowel sounds are positive. No organomegaly. EXTREMITIES: No pedal edema. SKIN: No rashes. NEUROLOGIC: Alert and oriented x3. No focal deficits. LABS: WBC 9.9, hemoglobin 14.6, platelets normal. Basic metabolic panel was within normal limits. AST 329, ALT 234, T bilirubin 0.8, alkaline phosphatase 119. Stool occult blood negative. Ultrasound showed gallstones with no biliary ductal dilation and fatty liver. IMPRESSION: This is a lady who presents to the hospital with intermittent episodes of severe epigastric and midsternal chest pain for the last one week duration. She had 3 episodes the last one this morning which was very intense and hence admitted to the hospital for further evaluation. Noted to have elevated serum transaminases with AST and ALT at 329 and 234 respectively. Normal T bilirubin and alkaline phosphatase. Ultrasound showed multiple gallstones. Symptoms are related to biliary colic from gallstones and possibility of CBD stone needs to be considered. RECOMMENDATIONS: 1. Continue clear liquid diet. 2. Repeat labs in the morning. 3. If the labs are improving, she can go ahead with the laparoscopic cholecystectomy. However, if her labs continue to get worse and her bilirubin increases, we will consider an ERCP tomorrow. The plan was discussed with the patient. She is agreeable to it. Thank you for this consultation. CARMENODL / IJN: [id number] /
[2020-03-02] MEDS: PIPERACILLIN-TAZOBACTAM 3.375 GM in SODIUM CHLORIDE 0.9% 100 ML IVPB SCH (16:21)
[2020-03-02] MEDS: D5-0.45% NACL WITH KCL 20MEQ/L 1,000 ML IV SCH (16:21)
[2020-03-02] MEDS: HEPARIN SODIUM,PORCINE 5,000 UNIT/ML 1 ML VIAL SQ SCH (21:55)
[2020-03-03] MEDS: PIPERACILLIN-TAZOBACTAM 3.375 GM in SODIUM CHLORIDE 0.9% 100 ML IVPB SCH ×4 (00:02→23:46)
[2020-03-03] MEDS: D5-0.45% NACL WITH KCL 20MEQ/L 1,000 ML IV SCH ×4 (00:03→23:52)
[2020-03-03] MEDS: HEPARIN SODIUM,PORCINE 5,000 UNIT/ML 1 ML VIAL SQ SCH ×2 (08:35→21:59)
[2020-03-03] MEDS: PANTOPRAZOLE 40 MG/10 ML VIAL IVP SCH (08:36)
[2020-03-03] MEDS: HYDROmorphone 1 MG/ML 1 ML SYRINGE IVP PRN ×4 (08:39→22:00)
[2020-03-03 09:04] LABS: Basophils % (A) 1 %; Eosinophils # (A) 0.1 k/uL (0-0.7); Eosinophils % (A) 2 %; HCT 39.8 % (34.0-46.0); HGB 13.6 gm/dL (11.4-16.0); Lymphocytes # (A) 1.6 k/uL (1.0-4.8); Lymphocytes % (A) 38 %; MCH 32.6 pg (25.0-35.0); MCHC 34.3 g/dL (31.0-37.0); Mean Platelet Volume 6.7; Monocytes # (A) 0.2 k/uL (0-1.0); Monocytes % (A) 6 %; Neutrophils # (A) 2.1 k/uL (1.3-7.7); Neutrophils % (A) 52 %; Platelet Count 233 k/uL (150-450); RBC 4.19 m/uL (3.80-5.40); RDW 12.3 % (11.5-15.5); WBC 4.1 k/uL (3.8-10.6)
[2020-03-03 09:14] LABS: ALT 335 U/L (4-34); AST 154 U/L (14-36); African American GFR (CKD) >90 (>60 ml/min/1.73 sqM); Albumin 3.9 g/dL (3.5-5.0); Alkaline Phosphatase 106 U/L (38-126); Anion Gap 5 mmol/L; Blood Urea Nitrogen 5 mg/dL (7-17); Calcium 9.3 mg/dL (8.4-10.2); Carbon Dioxide 25 mmol/L (22-30); Chloride 110 mmol/L (98-107); Glucose 106 mg/dL (74-99); Non-African American GFR(CKD) >90 (>60 ml/min/1.73 sqM); Sodium 140 mmol/L (137-145); Total Bilirubin 0.5 mg/dL (0.2-1.3)
--- NOTE | 2020-03-03 14:19 | PN ---
PROGRESS NOTE DATE OF DICTATION: March 03, 2020 Patient is a 50-year-old pleasant white female admitted to hospital with acute severe epigastric pain associated with nausea and vomiting for the last 2 days duration. She was noted to have elevated serum transaminases yesterday. Ultrasound showed multiple gallstones but no biliary ductal dilation. This morning she is feeling better. She still has some epigastric discomfort. Labs from today showed mild elevation of serum transaminases with AST which is better from yesterday and today it is 154 and ALT went up to 335. T bilirubin and alkaline phosphatase continued to remain normal. PHYSICAL EXAMINATION: Appears comfortable, no apparent distress. Vital signs are stable. Blood pressure is 101/71, pulse rate 80, temperature 97.9. HEENT EXAMINATION: Unremarkable. Conjunctivae pink. Sclerae anicteric. Oral cavity, no lesions. NECK: No JVD or lymph node enlargement. CHEST: Was clear to auscultation. HEART: Regular rate and rhythm. ABDOMEN: Soft. Bowel sounds are positive. No organomegaly. EXTREMITIES: No pedal edema. NEURO: She is alert and oriented x3. No focal deficits. LABS: Labs from today, CBC is normal. AST 154, ALT 335, T bilirubin and alkaline phosphatase are normal. CBC is within normal limits. IMPRESSION: 1. Elevated LFTs, rule out CBD stones. The patient has normal T bilirubin and alkaline phosphatase. Serum transaminases slightly worse than yesterday. 2. Symptomatic gallstones. Dr. Barlow following the patient closely. RECOMMENDATION: 1. We will schedule her for MRCP today to rule out CBD stone. 2. Repeat labs in the morning. 3. Continue with clear liquid diet. 4. Continue with empiric antibiotics. 5. Repeat labs in the morning and will follow with you closely. Thank you for this consultation. MMODL / IJN: [id number] /
--- NOTE | 2020-03-03 15:07 | P.PN ---
Subjective Progress Note Date: 03/03/20 Principal diagnosis: Acute cholecystitis Patient says her pain is slightly improved. Today's liver enzymes noted. Transaminases went from ALT 234-235 and AST 329-154. Bilirubin and alkaline phosphatase remain normal. Appetite improving. Nausea but no vomiting. Objective - Vital Signs Vital signs: Vital Signs Temp 98.3 F 03/03/20 14:06 Pulse 71 03/03/20 14:06 Resp 16 03/03/20 14:06 BP 115/69 03/03/20 14:06 Pulse Ox 97 03/03/20 14:06 Intake & Output 03/02/20 03/03/20 03/03/20 18:59 06:59 18:59 Intake Total 400 320 Output Total 2500 Balance 400 -2180 Weight 92.714 kg Intake: Oral 400 320 Output: Urine 2500 Other: Voiding Method Toilet Toilet - Exam Abdomen: Soft, right upper quadrant tenderness, nondistended - Labs CBC & Chem 7: 03/03/20 08:46 03/03/20 08:46 Labs: Abnormal Lab Results - Last 24 Hours (Table) 03/03/20 Range/Units 08:46 Chloride 110 H (98-107) mmol/L BUN 5 L (7-17) mg/dL Glucose 106 H (74-99) mg/dL AST 154 H (14-36) U/L ALT 335 H (4-34) U/L Assessment and Plan (1) Acute cholecystitis Narrative/Plan: 50-year-old female with acute cholecystitis. Rule out concurrent choledocholithiasis. Agree with plans for MRCP. If that study is normal we'll proceed with laparoscopic cholecystectomy possible open cholecystectomy tomorrow. Risks of bleeding, infection, bile leak, bile duct injury, retained common bile duct stone, trocar injury, conversion to an open procedure, hernia, anesthesia related complications were reviewed. The patient understands and wishes to proceed. Current Visit: Yes Status: Acute Code(s): K81.0 - ACUTE CHOLECYSTITIS SNOMED Code(s): 19214002
--- NOTE | 2020-03-03 17:32 | MR ---
EXAMINATION TYPE: MR MRCP DATE OF EXAM: 03/03/2020 COMPARISON: None HISTORY: Elevated LFT r/o CBD stone, cramping. Multiplanar multiecho imaging of the abdomen was performed without contrast. There are MRCP images. F indings Liver shows no focal defect. Gallbladder has normal size and contour. There is no wall thickening. Th ere is good visualization of the biliary tree. The common bile duct measures up to 7 mm. I see no gillian ling defect. The distal common bile duct shows smooth tapering. The intrahepatic bile ducts appear no rmal. Spleen appears normal. Stomach is intact. The pancreas appears normal. Pancreatic duct appears normal . Kidneys have normal size and contour. There is no hydronephrosis. There is no adrenal mass. There is no evidence of ascites. There is no sign of pleural effusion. Pancreatic duct appears normal IMPRESSION: Normal MRCP exam. No evidence of a common duct stone. Normal gallbladder. No focal liver defect. Norm al pancreatic duct.
[2020-03-04] MEDS: D5-0.45% NACL WITH KCL 20MEQ/L 1,000 ML IV SCH ×2 (03:29→16:47)
[2020-03-04] MEDS: HYDROmorphone 1 MG/ML 1 ML SYRINGE IVP PRN ×5 (03:30→23:56)
[2020-03-04 07:12] LABS: ALT 246 U/L (4-34); AST 74 U/L (14-36); African American GFR (CKD) >90 (>60 ml/min/1.73 sqM); Albumin 3.7 g/dL (3.5-5.0); Alkaline Phosphatase 84 U/L (38-126); Anion Gap 3 mmol/L; Blood Urea Nitrogen 4 mg/dL (7-17); Calcium 9.2 mg/dL (8.4-10.2); Carbon Dioxide 27 mmol/L (22-30); Chloride 106 mmol/L (98-107); Glucose 112 mg/dL (74-99); Non-African American GFR(CKD) >90 (>60 ml/min/1.73 sqM); Potassium 4.3 mmol/L (3.5-5.1); Sodium 136 mmol/L (137-145); Total Bilirubin 0.5 mg/dL (0.2-1.3); Total Protein 6.7 g/dL (6.3-8.2)
[2020-03-04] MEDS ORDERED: BUPIVACAINE (PF) 0.25% 30 ML VIAL SQ ONE ×3 (07:44→08:44)
--- NOTE | 2020-03-04 08:00 | P.PN ---
Progress Note - Text Progress Note Date: 03/04/20 Patient came down to the preoperative area for cholecystectomy today. MRCP yesterday was normal. Her liver enzymes today are improved. Still having mild upper abdominal pain. We'll proceed with laparoscopic, possible open cholecystectomy today. Risks of bleeding, infection, bile leak, bile duct injury, retained common bile duct stone, trocar injury, conversion to an open procedure, hernia, anesthesia related complications were reviewed. The patient understands and wishes to proceed.
[2020-03-04] MEDS ORDERED: KETOROLAC 15 MG/ML 1 ML VIAL ONE (08:15)
[2020-03-04] MEDS ORDERED: fentaNYL (PF) 50 MCG/ML 2 ML AMP ONE (08:15)
[2020-03-04] MEDS ORDERED: MIDAZOLAM 2 MG/2 ML VIAL ONE (08:15)
[2020-03-04] MEDS ORDERED: LIDOCAINE 1% INJ 10MG/ML (20 ML MDV) ONE (08:15)
[2020-03-04] MEDS ORDERED: DEXAMETHASONE SOD PHOSPHATE 4 MG/ML 1 ML VIAL ONE (08:15)
[2020-03-04] MEDS ORDERED: PROPOFOL 10 MG/ML 20 ML VIAL IV ONE (08:15)
[2020-03-04] MEDS ORDERED: NEOSTIGMINE 1 MG/ML 10 ML VIAL ONE (08:15)
[2020-03-04] MEDS ORDERED: ROCURONIUM 10 MG/ML (10 ML VIAL) IV ONE (08:15)
[2020-03-04] MEDS ORDERED: SUCCINYLCHOLINE CHLORIDE 100 MG/5 ML SYR IV ONE (08:15)
[2020-03-04] MEDS ORDERED: ONDANSETRON 4 MG/2 ML VIAL ONE (08:15)
[2020-03-04] MEDS ORDERED: GLYCOPYRROLATE 0.2 MG/ML 2 ML VIAL ONE (08:15)
[2020-03-04] MEDS ORDERED: LACTATED RINGERS 1,000 ML IV ONE (08:20)
[2020-03-04] MEDS: PIPERACILLIN-TAZOBACTAM 3.375 GM in SODIUM CHLORIDE 0.9% 100 ML IVPB SCH ×3 (08:34→23:55)
--- NOTE | 2020-03-04 09:22 | P.OP ---
Date of Procedure: 03/04/20 Procedure(s) Performed: PREOPERATIVE DIAGNOSIS: Acute cholecystitis POSTOPERATIVE DIAGNOSIS: Same, intra-abdominal adhesions PROCEDURE: Laparoscopic cholecystectomy, lysis of adhesions SURGEON: Yen EBL: Minimal see anesthesia record ANESTHESIA: Gen. COMPLICATIONS: None OPERATIVE PROCEDURE: The patient was brought and placed on the operating room table in the supine position. The patient was placed under general anesthesia at that time. The abdomen was prepped and draped in the usual sterile fashion. A curvilinear supraumbilical incision was made. The fascia was grasped with the Jin forceps. The fascia was retracted anteriorly. The Veress needle was advanced into the peritoneal cavity. The saline drop test was normal. Insufflation took place up to 15 mmHg. A 5 mm optical trocar was advanced and the peritoneal cavity. The patient was noted to have adhesions in the periumbilical location. I was able to see the right upper quadrant through a small window in the omentum. 2 5 mm trochars were placed in the right upper quadrant under direct visualization. The camera was inserted into that area and the umbilical site was inspected. I was able to lyse some of the adhesions between the omentum and the abdominal wall. There was no bowel in the vicinity of the trocar entry sites. A 12 mm trocar was advanced into the epigastric incision site. The gallbladder was retracted superiorly and laterally. The peritoneum overlying the infundibulum was bluntly dissected. The patient's cystic duct was visualized. The junction between the cystic duct common and hepatic duct was identified. The cystic duct was then divided after placement of 3 12 mm clips on the patient's side and one on the specimen side. The cystic artery was identified and clipped as well. A small vessel was seen along the gallbladder fossa and clipped as well. The gallbladder was then removed from the liver bed using electrocautery. The gallbladder was then removed from the epigastric trocar site with an Endo Catch bag. The gallbladder fossa was irrigated with saline. There was no evidence of any bleeding or biliary drainage seen. The fascia at the 12 millimeter site was closed using a Jimenez- [place] 0 Vicryl stitch. The trochars were then removed. The skin at all 4 sites was closed using a 4-0 Monocryl stitch. Skin glue was utilized on the incision sites. At the end of this procedure the sponge and needle counts were correct. DISPOSITION: Stable to the recovery room
[2020-03-04] MEDS: HYDROmorphone 1 MG/ML 1 ML SYRINGE IVP ONE ×4 (09:33→09:53)
[2020-03-04] MEDS: PANTOPRAZOLE 40 MG/10 ML VIAL IVP SCH (11:22)
[2020-03-04] MEDS: HEPARIN SODIUM,PORCINE 5,000 UNIT/ML 1 ML VIAL SQ SCH ×2 (11:23→20:02)
[2020-03-04] MEDS: HYDROcodone/APAP 5-325MG 1 EACH TAB PO PRN ×3 (14:09→21:56)
[2020-03-05] MEDS: D5-0.45% NACL WITH KCL 20MEQ/L 1,000 ML IV SCH (01:26)
[2020-03-05] MEDS: HYDROmorphone 1 MG/ML 1 ML SYRINGE IVP PRN ×2 (02:47→08:10)
[2020-03-05] MEDS: PANTOPRAZOLE 40 MG/10 ML VIAL IVP SCH (07:43)
[2020-03-05] MEDS: PIPERACILLIN-TAZOBACTAM 3.375 GM in SODIUM CHLORIDE 0.9% 100 ML IVPB SCH (07:46)
[2020-03-05] MEDS: HEPARIN SODIUM,PORCINE 5,000 UNIT/ML 1 ML VIAL SQ SCH (07:46)
[2020-03-05] MEDS: HYDROcodone/APAP 5-325MG 1 EACH TAB PO PRN ×2 (07:46→11:38)
[2020-03-05 07:55] VITALS: BP 101/63; PULSE 66; RESP 16; TEMP 97.6
--- NOTE | 2020-03-05 12:16 | P.DS ---
Providers Date of admission: 03/04/20 14:47 Expected date of discharge: 03/05/20 Attending physician: Eduardo Barlow Consults: 03/02/20 08:19 Consult Physician Routine Consulting Provider: Kelin Casno Consult Reason/Comments: GB disease suspected Do you want consulting provider notified?: Yes, Notify in am Primary care physician: Monster Norris - Discharge Diagnosis(es) (1) Acute cholecystitis Patient minute with right upper quadrant pain. Patient's liver enzymes were elevated and increasing. MRCP ordered to evaluate for choledocholithiasis which was normal. Patient underwent cholecystectomy yesterday which went well. Patient doing better today. Her pain is improved. Abdomen soft nondistended, mild tenderness, incisions clean and dry. Patient doing well. We'll discharge today. Follow-up one week. Current Visit: Yes Status: Acute Patient Condition at Discharge: Stable Plan - Discharge Summary New Discharge Prescriptions: New HYDROcodone/APAP 5-325MG [Troy 5-325] 1 tab PO Q6HR PRN 3 Days #6 tab PRN Reason: Analgesia No Action Omeprazole 40 mg PO DAILY Discharge Medication List Omeprazole 40 mg PO DAILY 03/02/20 [History] HYDROcodone/APAP 5-325MG [Troy 5-325] 1 tab PO Q6HR PRN 3 Days #6 tab 03/04/20 [Rx] Follow up Appointment(s)/Referral(s): Eduardo Barlow MD [Medical Doctor] - 1 Week Monster Norris MD [Primary Care Provider] - 1-2 days Patient Instructions/Handouts: Pain Management After Surgery (GEN), Narcotic Safety (GEN), Laparoscopic Cholecystectomy (GEN), Non-pharmacological Pain Management Therapies for Adults (ED) Activity/Diet/Wound Care/Special Instructions: May shower, no tub baths. No driving until cleared by Dr Barlow. Activity as tolerated, rest as needed. Do not pick at your incisions, leave them alone. They have glue over them. Good handwashing. Drink plenty of fluids. Continue to use your Incentive Spirometry for the next couple of days. Call Dr Barlow if you develop a fever, increase in pain, vomiting, or if you have any other questions or concerns. Call on Friday to make an appointment with Dr Norris to be seen this week for a follow up appointment. Call on Friday to make an appointment with Dr Barlow to be seen in 1 week for a follow up appointment. Motrin or Tylenol for for pain. Troy is your prescribed pain medicine, it has Tylenol in it. Do not take extra tylenol with the Troy.
== END 2020-03-05 13:20 | disposition home or self-care (01) | DRG 419 ==
LOC: EC 06:03 → 6NMEDSUR 08:20 → 6PED 10:36 → OBSVTOIN 03-04 14:47
PROVIDERS: ADMIT Surgery; ATTEND Surgery
PROC: 0FT44ZZ Resection of Gallbladder, Percutaneous Endoscopic Approach (ICD-10-PCS; principal; 2020-03-04 08:00)
DX: K80.00 Calculus of gallbladder with acute cholecystitis without obstruction (principal); J45.909 Unspecified asthma, uncomplicated; K21.9 Gastro-esophageal reflux disease without esophagitis; Z20.822 Contact with and (suspected) exposure to COVID-19; M19.90 Unspecified osteoarthritis, unspecified site; Z96.651 Presence of right artificial knee joint; Z98.82 Breast implant status; Z97.0 Presence of artificial eye; Z98.890 Other specified postprocedural states; Z79.899 Other long term (current) drug therapy; Z87.19 Personal history of other diseases of the digestive system
CPT/HCPCS: 36415; 71046; 74181; 76705; 80053; 81001; 82150; 82272; 83690; 84484; 85025; 87635; 88304; 93005; 96365; 96375; 99285

== ENCOUNTER 2020-05-12 07:01 | Emergency (ER) | payer OTHER ==
[2020-05-12] MEDS ORDERED: ACETAMINOPHEN TAB 500 MG TAB PO STA (07:29)
[2020-05-12] MEDS ORDERED: SODIUM CHLORIDE 0.9% 1,000 ML IV STA (07:32)
--- NOTE | 2020-05-12 07:38 | ED ---
SOB HPI - General Chief Complaint: Shortness of Breath Stated Complaint: Pneumonia Time Seen by Provider: 05/12/20 07:15 Source: patient Mode of arrival: wheelchair Limitations: no limitations - History of Present Illness Initial Comments: Patient is a 50-year-old female presenting to the emergency Department with complaints of increasing shortness of breath, cough over the past week. Patient was diagnosed with Covid on Friday, her symptoms began about 6 days ago. She's been battling with fevers, shortness of breath, cough and diarrhea. She states her appetite has been low, not able to drink much water. She denies history of asthma or COPD, never smoker. She denies any chest pain, no abdominal pain, some mild nausea. She did not take any Tylenol or Motrin today. She has no further complaints at this time. Upon arrival to the ER, she is febrile 102.0, 89% on room air. - Related Data Home Medications Medication Instructions Recorded Confirmed Omeprazole 40 mg PO DAILY PRN 03/02/20 05/12/20 Previous Rx's Medication Instructions Recorded Albuterol Inhaler [Ventolin Hfa 1 puff INHALATION RT-QID PRN #1 05/12/20 Inhaler] puff Dexamethasone [Decadron] 6 mg PO DAILY 5 Days #5 tablet 05/12/20 Allergies Allergy/AdvReac Type Severity Reaction Status Date / Time No Known Allergies Allergy Verified 05/12/20 08:18 Review of Systems ROS Statement: Those systems with pertinent positive or pertinent negative responses have been documented in the HPI. ROS Other: All systems not noted in ROS Statement are negative. Past Medical History Past Medical History: Osteoarthritis (OA) Additional Past Medical History / Comment(s): having knee replacement in December History of Any Multi-Drug Resistant Organisms: None Reported Past Surgical History: Breast Surgery, Cholecystectomy, Hernia Repair, Joint Replacement Additional Past Surgical History / Comment(s): bilateral breast implants, laser eye surgery with implants. hemorrhoidectomy, hernia repair w/mesh, right knee replacement Past Anesthesia/Blood Transfusion Reactions: No Reported Reaction Past Psychological History: No Psychological Hx Reported Smoking Status: Never smoker Past Alcohol Use History: Occasional Past Drug Use History: None Reported - Past Family History Mother Family Medical History: No Reported History General Exam - General Exam Comments Initial Comments: GENERAL: Patient is well-developed and well-nourished. Patient is nontoxic and in no acute distress. HEAD: Atraumatic, normocephalic. EYES: Pupils equal round and reactive to light, extraocular movements intact, sclera anicteric, conjunctiva are normal. Eyelids were unremarkable. ENT: TMs normal, nares patent, oropharynx clear without exudates. Moist mucous membranes. NECK: Normal range of motion, supple without lymphadenopathy or JVD. LUNGS: Unlabored respirations. Breath sounds clear to auscultation bilaterally and equal. No wheezes rales or rhonchi. HEART: Slightly tachycardia rate and rhythm without murmurs, rubs or gallops. ABDOMEN: Soft, nontender, normoactive bowel sounds. No guarding, no rebound. No masses appreciated. : Deferred MUSCULOSKELETAL: Normal extremities with adequate strength and normal range of motion, no pitting or edema. No clubbing or cyanosis. NEUROLOGICAL: Patient is alert and oriented x 3. Motor and sensory are also intact. Cranial nerves II through XII grossly intact. Symmetrical smile. Normal speech, normal gait. PSYCH: Normal mood, normal affect. SKIN: Warm, Dry, normal turgor, no rashes or lesions noted. Limitations: no limitations Course Vital Signs 05/12/20 05/12/20 05/12/20 07:09 09:03 09:29 Temperature 102 F H Pulse Rate 99 93 Respiratory 20 18 Rate Blood Pressure 108/65 112/79 O2 Sat by Pulse 89 L 96 93 L Oximetry 05/12/20 10:23 Temperature Pulse Rate 90 Respiratory 20 Rate Blood Pressure 113/61 O2 Sat by Pulse 96 Oximetry Medical Decision Making - Medical Decision Making Patient is a 50-year-old female here for shortness of breath, fever has been increasing for the past week. Positive Covid tests 4 days ago, symptoms started 6 days ago. She did arrive febrile to 102, 89% on room air. EKG shows normal sinus rhythm. Labs are stable, normal white count, normal kidney function, slight dehydration. Rapid Covid is positive. D-dimer is normal. Chest x-ray shows some mild peripheral left lower lobe infiltrate. Patient was placed on 2 L of O2, satting normal at 96-98%. We did take her off the O2 very ER stay and she was stable at 94%. We did walk with the patient and she did not drop lower than 93%. Patient did qualify for covid antibody infusion, she did receive, no side effects. She is stable for discharge. I will continue her on steroids, inhaler for shortness of breath. Patient is stable for discharge. Patient is in agreement with this plan of care. Return parameters were discussed with the patient and they verbalized understanding. Case discussed with Dr. zhou. - Lab Data Result diagrams: 05/12/20 07:52 05/12/20 07:52 Lab Results 05/12/20 05/12/20 05/12/20 Range/Units 07:52 07:52 07:52 WBC 4.6 (3.8-10.6) k/uL RBC 4.37 (3.80-5.40) m/uL Hgb 14.1 (11.4-16.0) gm/dL Hct 40.3 (34.0-46.0) % MCV 92.2 (80.0-100.0) fL MCH 32.2 (25.0-35.0) pg MCHC 35.0 (31.0-37.0) g/dL RDW 12.0 (11.5-15.5) % Plt Count 164 (150-450) k/uL MPV 7.6 Neutrophils % 73 % Lymphocytes % 21 % Monocytes % 4 % Eosinophils % 0 % Basophils % 0 % Neutrophils # 3.4 (1.3-7.7) k/uL Lymphocytes # 1.0 (1.0-4.8) k/uL Monocytes # 0.2 (0-1.0) k/uL Eosinophils # 0.0 (0-0.7) k/uL Basophils # 0.0 (0-0.2) k/uL PT 9.9 (9.0-12.0) sec INR 0.9 (<1.2) APTT 26.3 (22.0-30.0) sec D-Dimer 0.40 (<0.60) mg/L FEU Sodium 136 L (137-145) mmol/L Potassium 3.3 L (3.5-5.1) mmol/L Chloride 103 (98-107) mmol/L Carbon Dioxide 26 (22-30) mmol/L Anion Gap 7 mmol/L BUN 9 (7-17) mg/dL Creatinine 0.53 (0.52-1.04) mg/dL Est GFR (CKD-EPI)AfAm >90 (>60 ml/min/1.73 sqM) Est GFR (CKD-EPI)NonAf >90 (>60 ml/min/1.73 sqM) Glucose 132 H (74-99) mg/dL Plasma Lactic Acid Erasto (0.7-2.0) mmol/L Calcium 8.6 (8.4-10.2) mg/dL Magnesium 1.8 (1.6-2.3) mg/dL Total Bilirubin 0.5 (0.2-1.3) mg/dL AST 95 H (14-36) U/L ALT 85 H (4-34) U/L Alkaline Phosphatase 95 (38-126) U/L Lactate Dehydrogenase 1067 H (313-618) U/L C-Reactive Protein 51.5 H (<10.0) mg/L Total Protein 6.9 (6.3-8.2) g/dL Albumin 3.8 (3.5-5.0) g/dL Coronavirus (PCR) (Not Detectd) 05/12/20 05/12/20 Range/Units 07:52 09:40 WBC (3.8-10.6) k/uL RBC (3.80-5.40) m/uL Hgb (11.4-16.0) gm/dL Hct (34.0-46.0) % MCV (80.0-100.0) fL MCH (25.0-35.0) pg MCHC (31.0-37.0) g/dL RDW (11.5-15.5) % Plt Count (150-450) k/uL MPV Neutrophils % % Lymphocytes % % Monocytes % % Eosinophils % % Basophils % % Neutrophils # (1.3-7.7) k/uL Lymphocytes # (1.0-4.8) k/uL Monocytes # (0-1.0) k/uL Eosinophils # (0-0.7) k/uL Basophils # (0-0.2) k/uL PT (9.0-12.0) sec INR (<1.2) APTT (22.0-30.0) sec D-Dimer (<0.60) mg/L FEU Sodium (137-145) mmol/L Potassium (3.5-5.1) mmol/L Chloride (98-107) mmol/L Carbon Dioxide (22-30) mmol/L Anion Gap mmol/L BUN (7-17) mg/dL Creatinine (0.52-1.04) mg/dL Est GFR (CKD-EPI)AfAm (>60 ml/min/1.73 sqM) Est GFR (CKD-EPI)NonAf (>60 ml/min/1.73 sqM) Glucose (74-99) mg/dL Plasma Lactic Acid Erasto 1.0 (0.7-2.0) mmol/L Calcium (8.4-10.2) mg/dL Magnesium (1.6-2.3) mg/dL Total Bilirubin (0.2-1.3) mg/dL AST (14-36) U/L ALT (4-34) U/L Alkaline Phosphatase (38-126) U/L Lactate Dehydrogenase (313-618) U/L C-Reactive Protein (<10.0) mg/L Total Protein (6.3-8.2) g/dL Albumin (3.5-5.0) g/dL Coronavirus (PCR) Detected A (Not Detectd) - EKG Data EKG Comments: Normal sinus rhythm, normal ECG, no signs of acute process. Ventricular rate 95, P on over 124, QT 328. Disposition Clinical Impression: Pneumonia due to COVID-19 virus Disposition: HOME SELF-CARE Condition: Stable Instructions (If sedation given, give patient instructions): Coronavirus Disease 2019 (COVID-19) Additional Instructions: Please return to the Emergency Department if symptoms worsen or any other concerns. Take medications as prescribed. Follow-up with your regular doctor. Prescriptions: Dexamethasone [Decadron] 6 mg PO DAILY 5 Days #5 tablet Albuterol Inhaler [Ventolin Hfa Inhaler] 1 puff INHALATION RT-QID PRN #1 puff PRN Reason: Shortness Of Breath Is patient prescribed a controlled substance at d/c from ED?: No Referrals: Monster Norris MD [Primary Care Provider] - 1-2 days
[2020-05-12 08:07] LABS: Basophils % (A) 0 %; Eosinophils % (A) 0 %; HCT 40.3 % (34.0-46.0); HGB 14.1 gm/dL (11.4-16.0); Lymphocytes % (A) 21 %; MCH 32.2 pg (25.0-35.0); MCV 92.2 fL (80.0-100.0); Mean Platelet Volume 7.6; Monocytes # (A) 0.2 k/uL (0-1.0); Monocytes % (A) 4 %; Neutrophils # (A) 3.4 k/uL (1.3-7.7); Neutrophils % (A) 73 %; Platelet Count 164 k/uL (150-450); RBC 4.37 m/uL (3.80-5.40); WBC 4.6 k/uL (3.8-10.6)
[2020-05-12 08:19] LABS: ALT 85 U/L (4-34); AST 95 U/L (14-36); African American GFR (CKD) >90 (>60 ml/min/1.73 sqM); Albumin 3.8 g/dL (3.5-5.0); Alkaline Phosphatase 95 U/L (38-126); Anion Gap 7 mmol/L; Blood Urea Nitrogen 9 mg/dL (7-17); Calcium 8.6 mg/dL (8.4-10.2); Carbon Dioxide 26 mmol/L (22-30); Chloride 103 mmol/L (98-107); Glucose 132 mg/dL (74-99); LDH 1067 U/L (313-618); Magnesium 1.8 mg/dL (1.6-2.3); Non-African American GFR(CKD) >90 (>60 ml/min/1.73 sqM); Potassium 3.3 mmol/L (3.5-5.1); Sodium 136 mmol/L (137-145); Total Bilirubin 0.5 mg/dL (0.2-1.3); Total Protein 6.9 g/dL (6.3-8.2)
[2020-05-12 08:27] LABS: D-Dimer 0.4 mg/L FEU (<0.60); INR 0.9 (<1.2); Partial Thromboplastin Time 26.3 sec (22.0-30.0); Prothrombin Time 9.9 sec (9.0-12.0)
--- NOTE | 2020-05-12 08:28 | XR ---
EXAMINATION TYPE: XR chest 1V portable DATE OF EXAM: 05/12/2020 COMPARISON: 03/02/2020 INDICATION: Cough, weakness TECHNIQUE: Single frontal view of the chest is obtained. FINDINGS: The heart size is normal. The pulmonary vasculature is normal. Small amount of peripheral left lower lobe infiltrate may be present. Atypical pneumonia could be con sidered. IMPRESSION: 1. Mild peripheral left lower lobe infiltrate can be compatible with atypical pneumonia.
[2020-05-12 08:32] LABS: C Reactive Protein 51.5 mg/L (<10.0)
[2020-05-12] MEDS ORDERED: BAMLANIVIMAB (EUA) 700 MG, ETESEVIMAB (EUA) 1,400 MG in SODIUM CHLORIDE 0.9% 50 ML IVPB ONE (10:30)
[2020-05-12 11:17] VITALS: PULSE 90; RESP 20
[2020-05-12 12:14] VITALS: BP 129/81; TEMP 99
[2020-05-12 17:54] LABS: Ferritin 733.6 ng/mL (10.0-291.0)
== END 2020-05-12 12:14 | disposition home or self-care (01) ==
LOC: EC 07:01
DX: U07.1 COVID-19 (principal); J12.82 Pneumonia due to coronavirus disease 2019; M19.90 Unspecified osteoarthritis, unspecified site; Z90.49 Acquired absence of other specified parts of digestive tract
CPT/HCPCS: 36415; 93005; 85379; 80053; 82728; 83605; 83615; 83735; 85025; 85610; 85730; 86140; 84145; 87635; 71045; 99285; Q0245

== ENCOUNTER 2021-08-11 11:49 | Emergency (ER) | payer OTHER ==
[2021-08-11 11:59] VITALS: RESP 18
--- NOTE | 2021-08-11 13:08 | ED ---
General Adult HPI - General Chief complaint: Fever Stated complaint: covid+, wants infusion Time Seen by Provider: 08/11/21 12:49 Source: patient, RN notes reviewed, old records reviewed Mode of arrival: ambulatory Limitations: no limitations - History of Present Illness Initial comments: 51-year-old female presenting with a home test for coronavirus per she's had congestion, cough, fever over the past 48 hours. She was exposed to coronavirus. She is not vaccinated but has had coronavirus in the past. She denies dyspnea. She has been able to eat and drink. She is currently taking multiple vitamin at home. - Related Data Home Medications Medication Instructions Recorded Confirmed Omeprazole 40 mg PO DAILY PRN 03/02/20 05/12/20 Previous Rx's Medication Instructions Recorded Albuterol Inhaler [Ventolin Hfa 1 puff INHALATION RT-QID PRN #1 05/12/20 Inhaler] puff dexAMETHasone [Decadron] 6 mg PO DAILY 5 Days #5 tablet 05/12/20 Allergies Allergy/AdvReac Type Severity Reaction Status Date / Time No Known Allergies Allergy Verified 08/11/21 11:59 Review of Systems ROS Statement: Those systems with pertinent positive or pertinent negative responses have been documented in the HPI. ROS Other: All systems not noted in ROS Statement are negative. Past Medical History Past Medical History: Osteoarthritis (OA) Additional Past Medical History / Comment(s): having knee replacement in December History of Any Multi-Drug Resistant Organisms: None Reported Past Surgical History: Breast Surgery, Cholecystectomy, Hernia Repair, Joint Replacement Additional Past Surgical History / Comment(s): bilateral breast implants, laser eye surgery with implants. hemorrhoidectomy, hernia repair w/mesh, right knee replacement Past Anesthesia/Blood Transfusion Reactions: No Reported Reaction Past Psychological History: No Psychological Hx Reported Smoking Status: Never smoker Past Alcohol Use History: Occasional Past Drug Use History: None Reported - Past Family History Mother Family Medical History: No Reported History General Exam Limitations: no limitations General appearance: alert, in no apparent distress Head exam: Present: atraumatic, normocephalic Eye exam: Present: normal appearance Neck exam: Present: normal inspection Respiratory exam: Present: normal lung sounds bilaterally. Absent: respiratory distress, wheezes Cardiovascular Exam: Present: regular rate, normal rhythm GI/Abdominal exam: Present: soft. Absent: distended, tenderness, guarding Extremities exam: Present: normal inspection, normal capillary refill Neurological exam: Present: alert, oriented X3, CN II-XII intact. Absent: motor sensory deficit Psychiatric exam: Present: normal affect, normal mood Skin exam: Present: warm, dry, intact. Absent: cyanosis, diaphoretic Course Vital Signs 08/11/21 11:56 Temperature 99.5 F Pulse Rate 101 H Respiratory 18 Rate Blood Pressure 140/83 O2 Sat by Pulse 97 Oximetry Medical Decision Making - Medical Decision Making 51-year-old female with coronavirus over the past 48 hours. Patient does meet for monoclonal antibodies. She is transfused in the emergency department. She's given strict return parameters and will follow with the primary care physician. She will take vitamin C, vitamin D and zinc at home. Disposition Clinical Impression: COVID-19 Disposition: HOME SELF-CARE Condition: Fair Instructions (If sedation given, give patient instructions): COVID-19 (Coronavirus Disease 2019) (ED) Is patient prescribed a controlled substance at d/c from ED?: No Referrals: Monster Norris MD [Primary Care Provider] - 1-2 days Time of Disposition: 14:08
[2021-08-11] MEDS ORDERED: BEBTELOVIMAB (EUA) 175 MG/2 ML VIAL IV ONE (14:15)
[2021-08-11 15:52] VITALS: BP 165/94; PULSE 64; TEMP 100.5
== END 2021-08-11 15:52 | disposition home or self-care (01) ==
LOC: EC 11:49
DX: U07.1 COVID-19 (principal)
CPT/HCPCS: 87635; 99284; Q0222